=== PATIENT | male | born 1955 | race Caucasian/White ===

== ENCOUNTER 2023-09-17 10:06 | Day surgery (SDC) | payer MEDICARE, BC ==
--- NOTE | 2023-09-16 12:38 | HP ---
HISTORY AND PHYSICAL HISTORY OF PRESENT ILLNESS: Patient is a 68-year-old male who presents with an undesired port. It looks like patient had a total colectomy for a cancer a number of years ago. He has an ostomy. Periodically, he has polyps on his ostomy that need to have some silver nitrate on in the office. He desires to have that ostomy polyp removed surgically. PAST MEDICAL HISTORY: Colon cancer, thyroid, hypertension. HOME MEDICATIONS: Multivitamin, losartan, levothyroxine. ALLERGIES: To contrast and sulfa. PAST SURGICAL HISTORY: Colon resection, ileostomy. SOCIAL HISTORY: Occasional alcohol. FAMILY HISTORY: None reported. REVIEW OF SYSTEMS: CONSTITUTIONAL: Denies fever or chills. CHEST: Denies shortness of breath. CARDIAC: Denies chest pain. ABDOMEN: Denies abdominal pain. PHYSICAL EXAMINATION: GENERAL: No acute distress. CARDIOVASCULAR: Regular rate and rhythm. RESPIRATORY: Nonlabored. No shortness of breath. ABDOMEN: Soft. ASSESSMENT: Undesired port and ostomy polyp. PLAN: Port removal and ostomy polyp fulguration and coagulation with Dr. Sim Costa. This report was dictated for Dr. Costa by Massiel Peace NP.
[2023-09-17 11:20] VITALS: RESP 16
[2023-09-17] MEDS ORDERED: XYLOCAINE 1% HCL 20 ML MDV ONE (13:30)
[2023-09-17 13:57] VITALS: BP 136/69; PULSE 65; TEMP 98.8; O2SAT 97
--- NOTE | 2023-09-18 14:42 | OP ---
SURGERY DATE/TIME: 1311 PREOPERATIVE DIAGNOSES: 1) Undesired Port-A-Cath, Port-A-Cath removal. 2) Undesired colostomy polyp. PROCEDURE: Fulguration of colostomy polyp. SURGEON: Sim Costa M.D. ANESTHESIA: Local. COMPLICATIONS: None. CONDITION: Stable. DESCRIPTION OF PROCEDURE: Patient was taken to surgery, port was identified. Local anesthetic. It had been in place 6 years. It was totally removed, the port, the catheter, the catheter tip was intact. There was no bleeding from the catheter site. There was some shell that was taken off, i.e., natural envelope that occurs in the body. It was closed with 3-0 Vicryl and Steri-Strips. Moving down to the ostomy, the outside of the bag was taken off and the polyp was at 7 o'clock, 1% lidocaine, and it was fulgurated. Patient tolerated the procedure satisfactorily.
== END 2023-09-17 14:05 | disposition home or self-care (01) ==
LOC: SDC 10:06
PROVIDERS: ATTEND Surgery
DX: Z45.2 Encounter for adjustment and management of vascular access device (principal); K63.5 Polyp of colon; Z85.038 Personal history of other malignant neoplasm of large intestine

== ENCOUNTER 2024-05-19 07:06 | Day surgery (SDC) | payer MEDICARE, BC ==
--- NOTE | 2024-05-18 12:47 | HP ---
HISTORY AND PHYSICAL HISTORY OF PRESENT ILLNESS: Patient is a 69-year-old male who had a history of colon cancer. He has an ostomy. He has had multiple little polyps on the bud. He presents today with about a 7 or 8 mm polyp on the bottom side of his ostomy bud. He is willing to have this removed under a light anesthetic. It is causing him to have some bag malfunction and some discomfort. PAST MEDICAL HISTORY: Thyroid, hypertension, colon cancer. HOME MEDICATIONS: Losartan, amlodipine, levothyroxine. ALLERGIES: Contrast dye, sulfa. PAST SURGICAL HISTORY: Colostomy related to a colon cancer, quadriceps surgery. SOCIAL HISTORY: Occasional alcohol. FAMILY HISTORY: Head and neck cancer. REVIEW OF SYSTEMS: CONSTITUTIONAL: Denies fever or chills. CHEST: Denies shortness of breath. CARDIOVASCULAR: Denies chest pain. ABDOMEN: Denies abdominal pain. PHYSICAL EXAMINATION: GENERAL: No acute distress. CARDIOVASCULAR: Regular rate and rhythm. RESPIRATORY: Nonlabored. No shortness of breath. ABDOMEN: Soft. He has a 7 or 8 mm stoma polyp on the bottom edge. IMPRESSION: Ostomy polyp that is enlarging and causing some irritation. PLAN: Ostomy bud polypectomy with Dr. Sim Costa. This report was dictated for Dr. Costa by Massiel Peace NP.
[2024-05-19] MEDS ORDERED: Lactated Ringers 1,000 ML IV ONE (07:08)
[2024-05-19] MEDS: Lactated Ringers 1,000 ML IV SCH (07:27)
[2024-05-19 08:00] LABS: ANION GAP 16.5 MEQ/L (5-15); Calcium 9.1 mg/dL (8.4-10.2); Creatinine 1 1.63 mg/dL (0.66-1.25); EST GLOMERULAR FILTRATION RATE 44.8 ML/MIN; Potassium 4.1 mmol/L (3.5-5.1)
[2024-05-19] MEDS ORDERED: propofoL IV ONE ×2 (08:57→09:09)
[2024-05-19 09:49] VITALS: RESP 18
[2024-05-19 10:01] VITALS: BP 136/67; PULSE 66; TEMP 98.1; O2SAT 97
--- NOTE | 2024-05-20 10:01 | OP ---
SURGERY DATE/TIME: 05/19/2024 [id number] PREOPERATIVE DIAGNOSIS: Two polyps at the ostomy. POSTOPERATIVE DIAGNOSIS: Two polyps at the ostomy. PROCEDURE: Fulguration of 2 polyps at 6 o'clock and 9 o'clock, cannulation and exam of the ostomy to about 80 cm, which seemed complete. SURGEON: Sim Costa MD DESCRIPTION OF PROCEDURE AND FINDINGS: On circumferential withdrawal of the scope from 80 cm, there were no mucosal lesions. I am not so sure if this was an old ileostomy all the way to the end. The 2 polyp sites had been cauterized, and they both looked satisfactory. An ostomy bag was reapplied. Findings were discussed with the family in the waiting room. Follow up p.r.n.
== END 2024-05-19 10:14 | disposition home or self-care (01) ==
LOC: SDC 07:06
PROVIDERS: ATTEND Surgery
DX: Z08 Encounter for follow-up examination after completed treatment for malignant neoplasm (principal); Z85.038 Personal history of other malignant neoplasm of large intestine; Z93.3 Colostomy status; I10 Essential (primary) hypertension
CPT/HCPCS: 36415; 80048; 93005; J2704